=== PATIENT | male | born 1960 | race Caucasian/White ===

== ENCOUNTER 2019-09-24 12:38 | Emergency (ER) | payer OTHER ==
[~2019-09-24] VITALS: Ht 170.2 cm; Wt 89.4 kg
--- NOTE | 2019-09-24 12:45 | NUR ---
Patient ambulated to bed 9. RN evaluating patient at bedside.
[2019-09-24 13:10] VITALS: BP 127/85
--- NOTE | 2019-09-24 13:13 | NUR ---
WALKED INTO OUR TRIAGE WITH AN ECG FROM OUTSIDE CLINIC---ONLY C/O IS UNABLE TO YAWN FULLY---TAKEN DIRECTLY INTO ROOM 9 FOR REPEAT ECG AND TRIAGE.
[2019-09-24] MEDS ORDERED: NACL 0.9% 500 ML IV ONE (13:50)
--- NOTE | 2019-09-24 13:56 | NUR ---
electronic bench technician at bedside.
[2019-09-24 14:36] LABS: BASOPHILS # (AUTO) 0.1 K/uL (0.00-0.22); BASOPHILS % (AUTO) 0.8 % (0.0-2.0); EOSINOPHILS % (AUTO) 0.4 % (0.0-4.0); HEMATOCRIT 49.7 % (36-52); HEMOGLOBIN 16.3 g/dL (12.0-18.0); LYMPHOCYTES # (AUTO) 1.3 K/uL (2.0-11.5); LYMPHOCYTES % (AUTO) 14.4 % (20.5-51.1); MEAN CORPUSCULAR HEMOGLOBIN 27 pg (27-31); MEAN CORPUSCULAR HGB CONC 33 g/dL (33-37); MEAN CORPUSCULAR VOLUME 83.1 fL (80-94); MONOCYTES # (AUTO) 0.8 K/uL (0.8-1.0); MONOCYTES % (AUTO) 8.9 % (1.7-9.3); NEUTROPHILS % (AUTO) 75.5 % (42.2-75.2); PLATELET COUNT (AUTO) 221 K/uL (140-450); RED BLOOD CELL COUNT(AUTO) 5.97 MIL/uL (4.20-6.10); WHITE BLOOD COUNT (AUTO) 9.3 K/uL (4.8-10.8)
[2019-09-24 14:41] LABS: CARBON DIOXIDE 27.6 mmol/L (21-32); CREATININE 1.2 mg/dL (0.7-1.3); POTASSIUM 3.6 mmol/L (3.5-5.1)
[2019-09-24 14:42] LABS: PROTHROMBIN TIME 9.3 secs (10.8-13.4)
[2019-09-24 14:46] LABS: ALBUMIN 4.2 g/dL (3.4-5.0); TOTAL BILIRUBIN 1.3 mg/dL (0.0-1.0)
--- NOTE | 2019-09-24 15:07 | NUR ---
PT RESTING IN BED, SIDE RAIL UP. NO NEW NEEDS AT THIS TIME.
[2019-09-24] MEDS ORDERED: NACL 0.9% 1,000 ML IV ONE (16:00)
--- NOTE | 2019-09-24 16:26 | NUR ---
PT RESTING IN BED, NO NEW NEEDS AT THIS TIME
[2019-09-24 17:09] VITALS: BP 119/83
--- NOTE | 2019-09-24 17:09 | NUR ---
Patient discharged with v/s stable. Written and verbal after care instructions given and explained. Patient verbalized understanding. Ambulatory with steady gait. All questions addressed prior to discharge. Advised to follow up with PMD.
== END 2019-09-24 17:09 | disposition home or self-care (01) ==
LOC: MED 12:38
DX: R00.0 Tachycardia, unspecified (principal); R06.00 Dyspnea, unspecified; I10 Essential (primary) hypertension; Z98.890 Other specified postprocedural states
CPT/HCPCS: 36415; 71045; 80053; 83880; 84443; 84484; 85025; 85610; 85730; 99284; J7030; Q0092

== ENCOUNTER 2019-10-27 06:52 | Day surgery (SDC) | payer OTHER ==
[~2019-10-27] VITALS: Ht 170.2 cm; Wt 88.5 kg
[2019-10-27 07:36] LABS: BASOPHILS % (AUTO) 0.6 % (0.0-2.0); EOSINOPHILS # (AUTO) 0.1 K/uL (0-0.4); EOSINOPHILS % (AUTO) 1.3 % (0.0-4.0); HEMATOCRIT 47.1 % (36-52); HEMOGLOBIN 15.6 g/dL (12.0-18.0); LYMPHOCYTES # (AUTO) 1.3 K/uL (2.0-11.5); LYMPHOCYTES % (AUTO) 24.5 % (20.5-51.1); MEAN CORPUSCULAR HEMOGLOBIN 27 pg (27-31); MEAN CORPUSCULAR HGB CONC 33 g/dL (33-37); MEAN CORPUSCULAR VOLUME 82.2 fL (80-94); MONOCYTES # (AUTO) 0.7 K/uL (0.8-1.0); MONOCYTES % (AUTO) 12.7 % (1.7-9.3); NEUTROPHILS # (AUTO) 3.3 K/uL (1.8-7.7); NEUTROPHILS % (AUTO) 60.9 % (42.2-75.2); PLATELET COUNT (AUTO) 162 K/uL (140-450); RED BLOOD CELL COUNT(AUTO) 5.72 MIL/uL (4.20-6.10); RED CELL DISTRIBUTION WIDTH 14.3 % (11.6-13.7); WHITE BLOOD COUNT (AUTO) 5.4 K/uL (4.8-10.8)
[2019-10-27 07:49] LABS: ANION GAP 13.6 (8-16); CARBON DIOXIDE 28.2 mmol/L (21-32); CREATININE 1.4 mg/dL (0.7-1.3); POTASSIUM 3.8 mmol/L (3.5-5.1)
[2019-10-27] MEDS ORDERED: LIDOCAINE 1% 500 MG/50 ML VIAL ONE (08:22)
[2019-10-27] MEDS ORDERED: BUPIVACAINE-MPF 0.25% 30 ML VIAL INJ ONE (08:22)
[2019-10-27] MEDS ORDERED: BUPIVACAINE MPF 0.25% 10 ML VIAL INJ ONE (08:24)
[2019-10-27] MEDS ORDERED: BUPIVACAINE-MPF/EPI 0.25% 30 ML VIAL INJ ONE (08:30)
[2019-10-27] MEDS ORDERED: fentaNYL 0.05 MG/ML VIAL ONE (08:44)
[2019-10-27] MEDS ORDERED: ONDANSETRON 4 MG/2 ML VIAL ONE (08:44)
[2019-10-27] MEDS ORDERED: ROCURONIUM 50 MG/5 ML VIAL IV ONE (08:44)
[2019-10-27] MEDS ORDERED: PROPOFOL 200 MG/20 ML VIAL IV ONE (08:44)
[2019-10-27] MEDS ORDERED: DESFLURANE 240 ML BTL INH ONE (08:44)
[2019-10-27] MEDS ORDERED: DEXAMETHASONE 4 MG/ML VIAL ONE (08:44)
[2019-10-27] MEDS ORDERED: SUCCINYLCHOLINE CHLORIDE 200 MG/10 ML VIAL IVP ONE (08:44)
[2019-10-27] MEDS ORDERED: LISI2.5T12 PO (08:53)
[2019-10-27] MEDS ORDERED: HYDROGEN PEROXIDE 3% 240 ML BTL TP ONE (09:22)
[2019-10-27] MEDS ORDERED: HYDROmorphone 1 MG/ML AMP IVP PRN (09:45)
[2019-10-27] MEDS ORDERED: ONDANSETRON 4 MG/2 ML VIAL IVP PRN (09:45)
== END 2019-10-27 11:52 | disposition home or self-care (01) ==
LOC: MOR 06:52 → MMU 06:53 → MOR 11:52
PROVIDERS: ATTEND Surgery
DX: K61.4 Intrasphincteric abscess (principal); K64.4 Residual hemorrhoidal skin tags; I12.9 Hypertensive chronic kidney disease with stage 1 through stage 4 chronic kidney disease, or unspecified chronic kidney disease; E66.9 Obesity, unspecified; N18.9 Chronic kidney disease, unspecified
CPT/HCPCS: 36415; 46020; 46262; 71045; 80048; 85025; 88304; 93005; J0330; J1100; J2001; J2405; J2704; J3010; J3490; Q0092

== ENCOUNTER 2020-02-01 06:31 | Day surgery (SDC) | payer OTHER ==
[~2020-02-01] VITALS: Ht 172.7 cm; Wt 90.7 kg
[~2020-02-01 06:31] MED LIST: LISI2.5T12 PO
[2020-02-01] MEDS ORDERED: metroNIDAZOLE 500 MG/NS PREMIX 100 ML IV SCH (07:00)
[2020-02-01 07:44] LABS: BASOPHILS # (AUTO) 0.1 K/uL (0.00-0.22); BASOPHILS % (AUTO) 0.9 % (0.0-2.0); EOSINOPHILS # (AUTO) 0.1 K/uL (0-0.4); EOSINOPHILS % (AUTO) 2.3 % (0.0-4.0); HEMATOCRIT 46.7 % (36-52); HEMOGLOBIN 15.5 g/dL (12.0-18.0); LYMPHOCYTES # (AUTO) 1.8 K/uL (2.0-11.5); LYMPHOCYTES % (AUTO) 29.6 % (20.5-51.1); MEAN CORPUSCULAR HEMOGLOBIN 28 pg (27-31); MEAN CORPUSCULAR HGB CONC 33 g/dL (33-37); MEAN CORPUSCULAR VOLUME 83.5 fL (80-94); MONOCYTES # (AUTO) 0.4 K/uL (0.8-1.0); MONOCYTES % (AUTO) 7.4 % (1.7-9.3); NEUTROPHILS # (AUTO) 3.6 K/uL (1.8-7.7); NEUTROPHILS % (AUTO) 59.8 % (42.2-75.2); PLATELET COUNT (AUTO) 155 K/uL (140-450); RED CELL DISTRIBUTION WIDTH 13.7 % (11.6-13.7)
[2020-02-01 08:16] LABS: ANION GAP 12.1 (8-16); CARBON DIOXIDE 29.5 mmol/L (21-32); CREATININE 1.4 mg/dL (0.6-1.3); POTASSIUM 3.6 mmol/L (3.5-5.1); TOTAL BILIRUBIN 1.1 mg/dL (0.0-1.0)
[2020-02-01] MEDS ORDERED: ROCURONIUM 50 MG/5 ML VIAL IV ONE (09:05)
[2020-02-01] MEDS ORDERED: HYDROmorphone PFS 2 MG/ML SYR ONE (09:05)
[2020-02-01] MEDS ORDERED: MIDAZOLAM 2 MG/2 ML VIAL ONE (09:05)
[2020-02-01] MEDS ORDERED: SUCCINYLCHOLINE CHLORIDE 200 MG/10 ML VIAL IVP ONE (09:05)
[2020-02-01] MEDS ORDERED: ceFAZolin 1,000 MG VIAL ONE (09:06)
[2020-02-01] MEDS ORDERED: LIDOCAINE 2% 1000 MG/50 ML VIAL INJ ONE (09:46)
== END 2020-02-01 12:15 | disposition home or self-care (01) ==
LOC: MDS 06:31 → MMU 06:37 → MDS 12:15
PROVIDERS: ATTEND Surgery
DX: K60.3 Anal fistula (principal); I10 Essential (primary) hypertension; Z95.1 Presence of aortocoronary bypass graft
CPT/HCPCS: 36415; 46285; 71045; 80053; 85025; 93005; J0330; J0690; J1170; J2001; J2250; J3490; J7120; Q0092; J7060